=== PATIENT | male | born 1960 | race Caucasian/White ===

== ENCOUNTER → 2018-01-26 | Outpatient (CLI) | payer BC ==
[~2018-01-26] MED LIST: CIPROFLOXACIN500 M1 PO; FLAGYL500 MG PO; FLEXERIL PO; LIPITOR20 MG PO; LOW DOSE ASPIRI81 M1; MORPHINE SULFAT15 M4 PO; MS CONTIN15 MG PO; NABUMETONE 750750 M1 PO; NAPROSYN500 MG PO; NORCO 5-325 TA1 EACH PO; OXYCONTIN10 M1 PO; PLAVIX 75 MG TA75 MG; TIZANIDINE HCL 22 M1 PO; TRAMADOL 50 MG50 MG PO; VALIUM10 MG PO; ZOFRAN4 MG PO
--- NOTE | 2018-01-28 09:51 | PAINCON ---
[address] [address] PAIN MANAGEMENT CONSULTATION Name: NICOLLE ROGER V Room: [facility] JAISON Rodriguez#: [id number] Admission: 01/26/18 Attend Phys: Alphonse Macdonald Discharge: Date of : 60 Report #: [id number] THIS REPORT FOR: //name// CC: Abrahan Thomas DATE OF SERVICE: 01/26/2018 HISTORY OF PRESENT ILLNESS: The patient is a very pleasant 57-year-old gentleman who had been treated for symptomatic lumbar radiculopathy and axial back pain. Initially seen in 04/2017. We did lumbar epidural injection on 04/07, cervical epidural injection on 04/14, lumbar epidural injection on 05/19 and a cervical epidural injection on 06/23. 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 I tried to refer the patient for functional capacity testing. The patient returns to the pain clinic today, having not been seen in the clinic for about half a year. In the interval since we saw him, somehow my referral to physical therapy with specific request for functional capacity testing ended up initiating a course of physical therapy guided at axial back pain. The discharge after multiple visits on 08/30/2017 noted, "the patient appears motivated." The patient's discharge prognosis was poor. The patient presents with signs and symptoms that are consistent with cervical stenosis and lumbar spondylosis. The patient was referred to Dr. Ralph Rizzo for consideration for Neurosurgery. Dr. Rizzo suggested physical therapy. A second opinion was sought by neurosurgeon at [facility] who recommended either a lumbar fusion or a physical therapy. The patient has ongoing physical therapy currently, doing core strength exercises 2 times a week. He has been doing this about 3 months now. He did a short course of water aerobic therapy, which did seem to exacerbate some of the cervical radicular symptoms including paresthesia in his hands. His primary pain complaint, however, is pain in the low back. Pain is exacerbated with standing, walking and bending. The radicular component is actually fairly nominal at this point. PHYSICAL EXAMINATION: GENERAL: Otherwise shows 6 feet 2 inches, 264 pounds gentleman, BMI is 34 kilograms per meter squared. VITAL SIGNS: Blood pressure 134/72, pulse 69, respirations 16. MUSCULOSKELETAL: Subjective pain score is 7 on a VAS. Rises from chair using the armrest. Gait is tandem. Stocky muscular gentleman. Diffuse tenderness across the low back. Lumbar flexion is limited to about 30 degrees. Pain in the low back exacerbated with sidebending and rotation. At this point, [place] [address] PAIN MANAGEMENT CONSULTATION Name: NICOLLE ROGER V Room: [facility] JAISON Rodriguez#: [id number] Admission: 01/26/18 Attend Phys: Alphonse Macdonald Discharge: Date of : 60 Report #: [id number] extremity strength is preserved. Straight leg raise is negative. IMAGING: MRI of the lumbar spine from 03/16/2017 had noted facet degenerative changes, bilateral neural foraminal narrowing at L4-L5. Again, moderate facet arthropathy at both L4-L5 and L5-S1. This corresponds to a primary axial back pain component. ASSESSMENT: Symptomatic cervical radiculopathy by history, lumbar radiculopathy and lumbar spondylosis/lumbosacral spondylosis without myelopathy. RECOMMENDATIONS: After a long discussion with the patient today (the patient was seen for approximately 30 minutes today, greater than 50% of the time was spent counseling the patient), we discussed moving forward with social security disability. I suggest he contact an dredge pipeman to help him navigate those bureaucratic concerns. Given the trouble I had trying to get him referred for a functional capacity testing, hopefully disability specializing dredge pipeman will be able to refer him to a physician who can do a specific functional capacity testing and disability rating. For now, we have elected to direct therapy at the facet joints. We will proceed with bilateral L4-L5 and L5-S1 facet joint injection under fluoroscopy. I have taken the liberty of writing for MS immediate release 15 mg half to one tablet b.i.d. as needed for acute pain, limit 45 tablets. This will be used on a nondaily basis. The patient tells me he has used morphine as the only agent that has helped. He has used it quite infrequently, perhaps once a week in the past. ASSESSMENT: Symptomatic lumbar and lumbosacral spondylosis without myelopathy. PROCEDURE: Bilateral L4-L5 and L5-S1 facet joint injection under fluoroscopy. PROCEDURE NOTE: After written and informed consent was obtained, the patient was taken to the fluoroscopy suite and placed in prone position. After a sterile prep and drape, skin wheal was raised. A 22-gauge stylet needle was placed to contact the posterior aspect of the right L4-L5 and right L5-S1 facet joints. AP and lateral projections showed good needle placement. A 20 mg triamcinolone plus 1 mL of 0.5% preservative-free bupivacaine was injected. Needle was removed, area was cleansed. C-arm was turned obliquely to the contralateral side. Procedure was repeated in a "mirror" fashion. Fluoroscopy time was under 20 seconds. All 4 needles were removed, area was cleansed, Band-Aids applied. The patient monitored for an appropriate period of time, discharged in good and stable condition, noting about a 50% improvement in the baseline pain. Follow up in 4 weeks to evaluate efficacy. We [place] [address] PAIN MANAGEMENT CONSULTATION Name: NICOLLE ROGER V Room: [facility] JAISON Rodriguez#: [id number] Admission: 01/26/18 Attend Phys: Alphonse Macdonald Discharge: Date of : 60 Report #: [id number] at that time, do a pill count for the MS IR use and discussed moving forward with his disability concerns. <ELECTRONICALLY SIGNED> By: Suman Thomas DO 01/28/18 0951 [id number] Thomas DO /nt
== END | disposition home or self-care (01) ==
LOC: M.PC 02:31
DX: M47.816 Spondylosis without myelopathy or radiculopathy, lumbar region (principal); M47.817 Spondylosis without myelopathy or radiculopathy, lumbosacral region; Z98.890 Other specified postprocedural states; Z79.82 Long term (current) use of aspirin; Z79.899 Other long term (current) drug therapy

== ENCOUNTER → 2018-02-09 | Outpatient (CLI) | payer BC ==
--- NOTE | 2018-02-10 06:52 | PAINCON ---
[address] [address] PAIN MANAGEMENT CONSULTATION Name: NICOLLE ROGER [facility] [id number] Admission: 02/09/18 Attend Phys: Alphonse Macdonald Discharge: Date of : 60 Report #: [id number] THIS REPORT FOR: //name// CC: Abrahan Thomas DATE OF SERVICE: 02/09/2018 The patient is a 58-year-old gentleman being treated for lumbar radiculopathy, axial back pain, lumbar spondylosis, history of cervical radiculopathy. Last seen in the pain clinic on 01/26/2018. The patient was given bilateral L4-L5 and L5-S1 facet joint injection under fluoroscopy. He was provided a prescription for MS-IR 15 mg one-half tablet b.i.d. 45 tablets prescription. He did not get that filled. He notes significant improvement following the lumbar facet joint injections. Unfortunately, he remains relatively disabled from a functional standpoint. He had worked in heavy construction, and lifting and bending do significantly exacerbate pain. He is a highly motivated gentleman. It is unfortunate while he has had relief with our interventions, every time he resumes fairly vigorous and industrious activity, he has significant exacerbation of back pain. PHYSICAL EXAMINATION: VITAL SIGNS: Shows 6 feet 2 inches, 261 pounds gentleman, BMI is 33.7 kilograms per meter squared. Blood pressure 139/78, pulse of 55, respirations 16. NEUROLOGIC: Alert and oriented to person, place and time, judged to be a reasonable historian. Cervical range of motion is moderately limited. EXTREMITIES: Upper extremity strength is moderately limited. MUSCULOSKELETAL: Upper extremity strength is preserved. Rises from chair using armrest. Prior diffuse axial tenderness is relatively quiescent. Lower extremity strength is preserved. He does have slight limited range of motion to rotation and flexion though only nominally so. DIAGNOSTIC STUDIES: MRI from 03/16/2017 was reviewed. The patient has facet arthropathy at L2-L3 and L4-L5, L4-L5 notes neural foraminal narrowing without significant stenosis. Cervical MRI from the same date noted multilevel cervical spondylosis with [id number]-[id number] stenosis at C5-C6 and C6-C7, multilevel [id number] neural foraminal stenosis due to uncovertebral facet arthrosis. ASSESSMENT: Lumbar spondylosis by clinical exam and history interfering with functional work ability. Today, I did fill out [employer] disability continuation claim form. RECOMMENDATIONS: Unfortunately, it appears that the patient is functionally disabled from manual labor. Please note that he [place] [address] PAIN MANAGEMENT CONSULTATION Name: NICOLLE ROGER [facility] [id number] Admission: 02/09/18 Attend Phys: Alphonse Macdonald Discharge: Date of : 60 Report #: [id number] interventions. We can repeat lumbar facet joint injections if needed in the future; if this gives short term relief, we can consider radiofrequency neurolysis. He had prior seen a neurosurgeon (Dr. Narayanan) who had recommended a lumbar fusion, but noted that he could not guarantee this would correct axial back pain, but would definitely decreased range of motion. I reviewed the same opinion with the patient today. The patient was discharged in stable condition today without medication. We did spend a good deal of time today reviewing therapeutic options and discussing unfortunately what appears to be a chronic disability. Suggest the patient move forward with social security disability application. I did renew the aforementioned claim. Discharged in good and stable condition after approximately 25 minutes spent with the patient, greater than 50% of this time was spent counseling the patient and reviewing therapeutic options. Discharged in stable condition. <ELECTRONICALLY SIGNED> By: Suman Thomas DO 02/10/18 [id number] Thomas DO /nt
== END ==
LOC: M.PC 02:44
DX: M47.26 Other spondylosis with radiculopathy, lumbar region (principal)

== ENCOUNTER → 2018-05-11 | Outpatient (CLI) | payer BC ==
--- NOTE | 2018-05-12 07:04 | PAINCON ---
[address] [address] PAIN MANAGEMENT CONSULTATION Name: NICOLLE ROGER V Room: [facility] JAISON Rodriguez#: [id number] Admission: 05/11/18 Attend Phys: Alphonse Macdonald Discharge: Date of : 60 Report #: [id number] THIS REPORT FOR: //name// CC: Abrahan Thomas DATE OF SERVICE: 05/11/2018 The patient is an extremely pleasant 58-year-old josiah, being treated for axial back pain, lumbar spondylosis without myelopathy, history of cervical radiculopathy requiring complex medication management. The patient has had facet joint injections with transient improvement of symptoms. He has had ongoing axial back pain that significantly interferes with function. 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 With ongoing axial back pain exacerbated with lifting and bending, I have suggested that he move forward with disability rating. In my 30 years of medical practice, this patient may be my fourth or fifth patient that I have actively encouraged to seek disability. Typically, we try and mitigate pain symptoms to enable patients to participate in activities of daily living and gainful employment; however, with ongoing pain, albeit in the face of somewhat moderate lumbar spondylosis on MRI exam, patient has fairly classic facet arthropathy generated pain. He also has component a of significant radicular pain exacerbated with lifting, which is compatible with his fairly significant cervical stenosis. Both issues significantly impact his functional status. I had referred him to [facility] for a functional capacity evaluation. Unfortunately, this was never obtained. He returns to Pain Clinic today requesting renewal of his short-term disability. He is in the process of seeking long-term disability. Rates his subjective pain score 6 on a VAS. Complains of pain in his low back and neck. PHYSICAL EXAMINATION: Shows 6 feet 2 inches tall, 258-pound gentleman, BMI is 33.2 kg/m2. Blood pressure 136/78, pulse 61, respirations 16. Alert and oriented to person, place and time, judged to be a reasonable historian. Cervical range of motion is limited. Upper extremity strength, again fairly robust gentleman, but he has subjective loss of strength and has some paresthesia going into the fingers and hand. Rises from chair using the armrest. Diffuse tenderness across the low back. Gait is tandem. Lumbar flexion is limited. Pain is exacerbated with side bending and rotation. Reviewed diagnostic findings including MRI of the cervical spine from 03/16/2017 noting multilevel cervical spondylosis with moderate central spinal stenosis at C5-C6 and C6-C7, multilevel moderate to severe/[place] [address] PAIN MANAGEMENT CONSULTATION Name: NICOLLE ROGER V Room: [facility] Rodriguez#: [id number] Admission: 05/11/18 Attend Phys: Alphonse Macdonald Discharge: Date of : 60 Report #: [id number] due to uncovertebral facet joint arthrosis at multiple levels. MRI of the lumbar spine from same date notes mild L2-L3 and L4-L5 disk bulge and facet arthropathy, mild L4-L5 neuroforaminal narrowing. ASSESSMENT: 1. Symptomatic cervical radiculopathy by clinical exam and history. 2. Symptomatic lumbar spondylosis without myelopathy. 3. Axial back pain significantly impacting functional status. RECOMMENDATION: After prolonged visit today, approximately 30 minutes was spent with the patient reviewing disability, documentation, and functional status. 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 The patient is loathe to take opiate analgesics, takes Valium at bedtime for anxiety and muscle spasm, nonsteroidal anti-inflammatory medications over the counter. <ELECTRONICALLY SIGNED> By: Suman Thomas DO 05/12/18 0704 [id number] [id number] Thomas DO /nt
== END ==
LOC: M.PC 04:47
DX: M47.816 Spondylosis without myelopathy or radiculopathy, lumbar region (principal); M54.12 Radiculopathy, cervical region

== ENCOUNTER → 2021-08-14 | Outpatient (CLI) | payer OTHER ==
[2021-08-14 10:57] LABS: CHOLESTEROL 140 mg/dL (<200); HDL CHOLESTEROL 59 mg/dL (>40); LDL CHOLESTEROL 57 mg/dL (<100); SERUM ASSESSMENT Clear; TC:HDL 2.4 Ratio (Not establshd); TRIGLYCERIDE 123 mg/dL (<150); VLDL 25 mg/dL (<40)
== END ==
LOC: M.LAB 10:26
PROVIDERS: ATTEND Internal Medicine Cardiovascular Disease
DX: E78.00 Pure hypercholesterolemia, unspecified (principal)